=== PATIENT | female | born 1995 | race Two or more races ===

== ENCOUNTER 2022-07-05 11:28 | Inpatient (IN) | payer OTHER ==
[~2022-07-05] VITALS: Ht 162.6 cm; Wt 2.7 kg
[2022-07-05] MEDS ORDERED: PRENATAL + DHA1 EAC1 PO (12:29)
[2022-07-08] MEDS ORDERED: SIMETHICONE125 M1 PO (14:55)
[2022-07-08] MEDS ORDERED: IBU800 MG PO (14:55)
[2022-07-08] MEDS ORDERED: COLACE100 MG PO (14:55)
== END 2022-07-08 15:29 | disposition home or self-care (01) | DRG 788 ==
LOC: EDBD 11:28 → LDR 11:28 → OB/GYN 07-06 19:33
PROVIDERS: ADMIT Obstetrics & Gynecology; ATTEND Obstetrics & Gynecology
PROC: 4A1HXCZ Monitoring of Products of Conception, Cardiac Rate, External Approach (ICD-10-PCS; 2022-07-06)
PROC: 10D00Z1 Extraction of Products of Conception, Low, Open Approach (ICD-10-PCS; principal; 2022-07-06 18:00)
DX: O41.03X0 Oligohydramnios, third trimester, not applicable or unspecified (principal); Z3A.38 38 weeks gestation of pregnancy; Z37.0 Single live birth; Z20.822 Contact with and (suspected) exposure to COVID-19